=== PATIENT | female | born 1975 | race Caucasian/White ===

== ENCOUNTER 2021-03-21 11:13 | Emergency (ER) | payer MEDICAID ==
[~2021-03-21] VITALS: Ht 170.2 cm; Wt 84.4 kg
[2021-03-21 11:16] VITALS: BP 140/95
== END 2021-03-21 12:06 | disposition home or self-care (01) ==
LOC: ED 11:44
DX: Z86.718 Personal history of other venous thrombosis and embolism (principal); Z76.0 Encounter for issue of repeat prescription
CPT/HCPCS: 99281

== ENCOUNTER 2021-07-06 20:44 | Emergency (ER) | payer MEDICAID ==
[~2021-07-06] VITALS: Ht 170.2 cm; Wt 78.9 kg
[2021-07-06 20:54] VITALS: BP 140/98
[2021-07-06] MEDS ORDERED: APIX5TAB PO (21:02)
[2021-07-06] MEDS ORDERED: PROP20TA PO (21:02)
[2021-07-06] MEDS ORDERED: LISI-170 PO (21:02)
--- NOTE | 2021-07-06 22:22 | NUR ---
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
[2021-07-06] MEDS ORDERED: ALBUTEROL HFA 90 MCG/SPRAY INH ONE (22:30)
--- NOTE | 2021-07-06 22:45 | NUR ---
pt presents to the ed with coughing, sore thoart and congestion. pt states she had COVID before. pt in gown, resting on gurney, and placed on continuous monitoring and Resp Isolation.
--- NOTE | 2021-07-06 23:50 | NUR ---
Patient given discharge instructions and they have confirmed that they understand the instructions. Patient ambulatory with steady gait.
== END 2021-07-06 23:52 | disposition home or self-care (01) ==
LOC: ED 23:32
DX: J98.01 Acute bronchospasm (principal); B34.9 Viral infection, unspecified; Z20.822 Contact with and (suspected) exposure to COVID-19; M19.90 Unspecified osteoarthritis, unspecified site; F17.200 Nicotine dependence, unspecified, uncomplicated; Z86.718 Personal history of other venous thrombosis and embolism
CPT/HCPCS: 71045; 94640; 99284; U0003; U0005